=== PATIENT | female | born 1995 | race Caucasian/White ===

== ENCOUNTER 2018-08-05 20:18 | Emergency (ER) | payer MEDICAID ==
[2018-08-05] MEDS ORDERED: predniSONE 20 MG TAB PO (21:18)
[2018-08-05] MEDS: ALBUTEROL 0.083% (NEB) 2.5 MG/3 ML AMP NEB (21:39)
[2018-08-05] MEDS: IPRATROPIUM (NEB) 0.5 MG/2.5 ML AMP NEB (21:39)
[2018-08-05] MEDS ORDERED: ALBUTEROL 0.5% (NEB) 2.5 MG/0.5 ML AMP NEB (22:17)
[2018-08-05] MEDS ORDERED: LEVALBUTEROL (NEB) 1.25 MG/0.5 ML AMP INH (22:22)
[2018-08-05] MEDS: LEVALBUTEROL (NEB) 1.25 MG/0.5 ML AMP HHN (22:31)
[2018-08-05 23:48] LABS: ADD MAN DIFF? NO
[2018-08-05 23:50] LABS: BASOPHILS % 0.3 % (0.0-2.0); EOSINOPHILS # 0.3 10^3/ul (0.0-0.5); EOSINOPHILS % 2.1 % (0.0-7.0); HEMATOCRIT 38.7 % (37.0-47.0); HEMOGLOBIN 12.7 g/dl (12.0-16.0); LYMPHOCYTES # 3.1 10^3/ul (0.8-2.9); LYMPHOCYTES % 22.2 % (15.0-51.0); MEAN CORPUSCULAR HEMOGLOBIN 28.8 pg (29.0-33.0); MEAN CORPUSCULAR HGB CONC 32.8 g/dl (32.0-37.0); MEAN CORPUSCULAR VOLUME 87.8 fl (82.0-101.0); MEAN PLATELET VOLUME 10.5 fl (7.4-10.4); MONOCYTE # 0.9 10^3/ul (0.3-0.9); MONOCYTES % 6.6 % (0.0-11.0); NEUTROPHIL # 9.7 10^3/ul (1.6-7.5); NEUTROPHILS % 68.2 % (39.0-77.0); PLATELET COUNT 177 10^3/UL (140-415); RED BLOOD COUNT 4.41 10^6/ul (4.20-5.40); RED CELL DISTRIBUTION WIDTH 13.9 % (11.5-14.5)
[2018-08-05 23:50] LABS: WHITE BLOOD COUNT 14.2 10^3/ul (4.8-10.8)
[2018-08-06 00:07] LABS: ALANINE AMINOTRANSFERASE 19 IU/L (13-69); ALBUMIN 3.6 g/dl (3.3-4.9); ALBUMIN/GLOBULIN RATIO 1.12; ALKALINE PHOSPHATASE 74 IU/L (42-121); ANION GAP 14 (5-13); ASPARTATE AMINO TRANSFERASE 21 IU/L (15-46); BILIRUBIN,INDIRECT 0.5 mg/dl (0-1.1); BILIRUBIN,TOTAL 0.5 mg/dl (0.2-1.3); BLOOD UREA NITROGEN 5 mg/dl (7-20); CALCIUM 8.7 mg/dl (8.4-10.2); CARBON DIOXIDE 20 mmol/L (21-31); CHLORIDE 107 mmol/L (97-110); CREATININE 0.48 mg/dl (0.44-1.00); Estimated GFR > 60 mL/min (>60); GLUCOSE 118 mg/dl (70-220); SODIUM 141 mmol/L (135-144); TOTAL PROTEIN 6.8 g/dl (6.1-8.1)
[2018-08-06 00:18] LABS: POTASSIUM 2.8 mmol/L (3.5-5.1)
[2018-08-06] MEDS: SOD CHLORIDE 0.9% 1,000 ML IV (00:29)
[2018-08-06] MEDS: POTASSIUM CHLORIDE (SR) 20 MEQ TAB PO (00:32)
[2018-08-06] MEDS: POTASSIUM CHLORIDE 100 ML IVPB (00:37)
[2018-08-06] MEDS: IODIXANOL LOCM 100 ML BTL (01:28)
[2018-08-06] MEDS: SOD CHLORIDE 0.9% 100 ML (01:28)
== END 2018-08-06 03:05 | disposition home or self-care (01) ==
LOC: FTE 20:18 → E/R 08-06 03:05
DX: O99.512 Diseases of the respiratory system complicating pregnancy, second trimester (principal); J45.901 Unspecified asthma with (acute) exacerbation; J18.9 Pneumonia, unspecified organism; R06.02 Shortness of breath; Z3A.23 23 weeks gestation of pregnancy
CPT/HCPCS: 36415; 71045; 71275; 80053; 85025; 93005; 93970; 94644; 94645; 96374; 99285-25